=== PATIENT | male | born 1990 | race Caucasian/White ===

== ENCOUNTER 2023-11-19 08:20 | Outpatient (CLI) | payer OTHER, SELFPAY ==
[2023-12-03 15:06] VITALS: BMI 38.1
--- NOTE | 2023-12-03 15:06 | WPDSLEEPSTUD ---
Sleep Study Date of Study: 11/19/23 Ordering Provider: Kavin Yusuf MD Interpreting Physician: Claire Seo DO Sleep Study Type: Split Polysomnogram Height: 1.73 m Weight: 113.852 kg Body Mass Index: 38.1 Neck Circumference (inches): 18 [place]: 0 Reason for Sleep Study Snoring Sleep History The patient is a 32-year-old male with depression and obesity that had a sleep study ordered by his grain loader for evaluation of sleep apnea. The patient rarely awakens from sleep short of breath. He denies awakening at night with heartburn, belching or cough. He constantly snores loudly enough that others complain. He frequently has trouble sleeping when he has a cold. He denies waking up gasping for air throughout the night. He frequently has breathing problems at night observed by himself or others. He denies sweating excessively at night. He denies having heart palpitations or irregular heartbeats during the night. He denies falling asleep during the day. He denies falling asleep while driving. He denies sleep paralysis, cataplexy and hypnagogic / hypnopompic hallucinations. He rarely has trouble at school or work due to sleepiness. He denies feeling afraid of going to sleep. He rarely has nightmares. He frequently remembers his dreams. He occasionally has thoughts racing through his mind. He rarely feels sad, depressed or anxious. He rarely has muscular tension. He rarely notices parts of his body jerk. He denies kicking during the night. He denies having crawling and aching feelings in his legs and denies having leg pain during the night. He denies grinding his teeth during sleep and denies awakening with morning jaw pain. He is rarely bothered by pain during the day but never awakened by pain during the night. He rarely wakes up feeling stiff in the morning. He rarely wakes up with sore or achy muscles. He rarely wakes up with pain in the neck, spine and other joints. He goes to bed between 10:00 p.m. to 12:00 a.m. on weekdays and between 11:00 p.m. to 1:00 a.m. on the weekends. It takes him 20 minutes to fall asleep. He wakes up once throughout the night to urinate and is able fall back asleep within a few minutes. He wakes up at 7:00 a.m. on weekdays and 8:00 a.m. on the weekends. He typically gets 7 8 hours of sleep per night. He does not stay in bed after waking up in the morning. He currently lives with his mother. He denies consuming any caffeinated beverages within 2 hours of bedtime. He denies engaging in physical exercise before bedtime. He denies reading and watching television before falling asleep. He denies taking naps in afternoon or the evening. He consumes 1 caffeinated beverage per day. He denies tobacco, alcohol and recreational drug use. [facility] Past Medical History Medical History Major depressive disorder Social History Social History Smoking status: Never smoker Medications Home Medications Medication Instructions Recorded Confirmed Type fluoxetine 20 mg capsule 20 mg PO DAILY 11/04/23 History Sleep Procedure A full night polysomnogram using the [employer] multi-channel system recorded the standard physiologic parameters including EEG, EOG, submentalis EMG, anterior tibialis EMG, EKG, body position, nasal and oral airflow using nasal pressure sensor and thermistor.? Respiratory parameters of chest and abdominal movements were recorded with Respiratory Inductance Plethysmography belts. Oxygen saturation was recorded by pulse oximetry. Video monitoring was also performed. Sleep stages, periodic limb movements, and EEG arousals were scored in 30 second epochs according to the criteria of the AASM Scoring Manual. The Apnea-Hypopnea Index was calculated using CMS guidelines for definition of hypopnea with 4% O2 desaturations while scoring respiratory
== END 2023-11-20 07:19 | disposition home or self-care (01) ==
LOC: ANHCSM 08:21
PROVIDERS: PCP Student in an Organized Health Care Education/Training Program; Visit Provider Internal Medicine Pulmonary Disease
DX: G47.33 Obstructive sleep apnea (adult) (pediatric) (principal); F39 Unspecified mood [affective] disorder
CPT/HCPCS: 95811